=== PATIENT | male | born 1975 | race Hispanic/Latino ===

== ENCOUNTER 2018-01-28 12:19 | Emergency (ER) | payer OTHER ==
[2018-01-28] MEDS ORDERED: TETRACAINE HCL 0.5% 4 ML OPHTH SOLN ONE (12:53)
[2018-01-28] MEDS ORDERED: NA BORATE/BORIC AC/H2O/NACL 120 ML OPHTH IRRIG SOLN ONE (12:54)
[2018-01-28] MEDS ORDERED: FLUORESCEIN SODIUM 0.6 MG STRIP ONE (12:54)
[2018-01-28] MEDS ORDERED: GENTAMICIN SULFATE 0.3% 5ML DROPS ONE (13:16)
[2018-01-28] MEDS ORDERED: HYDROCODONE/ACETAMINOPHEN 5/325 MG TAB ONE (13:17)
== END 2018-01-28 13:55 | disposition home or self-care (01) ==
LOC: EDH 12:19
DX: S05.02XA Injury of conjunctiva and corneal abrasion without foreign body, left eye, initial encounter (principal); X58.XXXA Exposure to other specified factors, initial encounter; Y93.89 Activity, other specified; Y92.89 Other specified places as the place of occurrence of the external cause; Y99.8 Other external cause status